=== PATIENT | female | born 1950 | race Caucasian/White ===

== ENCOUNTER → 2016-07-09 | Outpatient (CLI) | payer OTHER, MEDICARE | LOC: FIMAGING 16:00 | DX: Z12.31 Encounter for screening mammogram for malignant neoplasm of breast (principal) | CPT/HCPCS: G0202 ==

== ENCOUNTER → 2017-01-10 | Outpatient (CLI) | payer OTHER, MEDICARE | LOC: FIMAGING 09:04 | PROVIDERS: ATTEND Internal Medicine | DX: R90.82 White matter disease, unspecified (principal) ==

== ENCOUNTER → 2017-03-04 | Outpatient (CLI) | payer OTHER, MEDICARE | LOC: BHFA 08:30 | PROVIDERS: ATTEND Internal Medicine Cardiovascular Disease | DX: R94.31 Abnormal electrocardiogram [ECG] [EKG] (principal); R06.09 Other forms of dyspnea | CPT/HCPCS: 78452; 93017; A9500 ==

== ENCOUNTER 2017-06-10 03:15 | Emergency (ER) | payer OTHER, MEDICARE ==
[2017-06-10] MEDS ORDERED: NS 1,000 ML IV ONE ×3 (03:25→05:57)
--- NOTE | 2017-06-10 03:33 | CPEKG ---
Heart Rate: 45 RR Interval: 1333 P-R Interval: 216 QRSD Interval: 90 QT Interval: 512 QTC Interval: 443 P [place]: 44 QRS [place]on: -43 T Wave [place]on: -13 EKG Severity - BORDERLINE ECG - EKG Impression: SINUS BRADYCARDIA EKG Impression: LEFT AXIS DEVIATION EKG Impression: BORDERLINE T ABNORMALITIES, INFERIOR LEADS Electronically Signed By: Lynnette Rizzo 10-Jun-2017 07:37:50
[2017-06-10 03:37] LABS: PLATELET COUNT 306 10^3/uL (150-400)
[2017-06-10] MEDS ORDERED: KETOROLAC 15 MG/1 ML SDV IVP ONE (04:01)
[2017-06-10] MEDS ORDERED: fentaNYL 100 MCG/2 ML INJ IVP ONE (04:01)
--- NOTE | 2017-06-10 04:06 | EDPHY ---
H & P Stated Complaint: CP Time Seen by Provider: 06/10/17 03:48 HPI/ROS: HPI The patient presents brought in by ambulance for chest pain which began at approximately 2:15 a.m. This morning and awoke her from sleep. She describes the pain as a pressure like sensation which feels like a fist in her mid sternum. It causes numbness to her jaw and left shoulder. It has been constant since it started and is moderate in severity. She feels short of breath with this. It is associated with dizziness. She denies any diaphoresis , nausea, vomiting. She denies any coughing, rhinorrhea, sore throat, fever. She was feeling well when she went to bed last night. She has no prior history of similar pain. She had a negative stress test performed in February of 2017. She does not have any leg swelling. She says her blood pressure is usually 118 over 60s. REVIEW OF SYSTEMS Constitutional: No fever, no chills. Eyes: No discharge. ENT: No sore throat. Cardiovascular: No chest pain, no palpitations. Respiratory: No cough, no shortness of breath. Gastrointestinal: No abdominal pain, no vomiting. Genitourinary: No hematuria. Musculoskeletal: No back pain. Skin: No rashes. Neurological: No headache. PMHx: Pre diabetes, hypercholesterolemia Soc Hx: Lives at home with her PHYSICAL General Appearance: Alert, no distress Eyes: Pupils equal and round no pallor or injection ENT, Mouth: Mucous membranes moist Respiratory: There are no retractions, lungs are clear to auscultation Cardiovascular: Regular rate and rhythm Gastrointestinal: Abdomen is soft and non-tender, no masses, bowel sounds normal Neurological: A&O, moves all extremities Skin: Warm and dry, no rashes Musculoskeletal: Neck is supple non tender Extremities: symmetrical, full range of motion Psychiatric: Patient is oriented X 3, there is no agitation Source: Patient, EMS Exam Limitations: No limitations - Personal History Current Tetanus/Diphtheria Vaccine: Yes - Medical/Surgical History Hx Asthma: No Hx Chronic Respiratory Disease: No Hx Diabetes: Yes Hx Cardiac Disease: No Hx Renal Disease: No Hx Cirrhosis: No Hx Alcoholism: No Hx HIV/AIDS: No Hx Splenectomy or Spleen Trauma: No Other PMH: hypothyroid, high cholesterol, pre diabetic, Constitutional: Initial Vital Signs Heart Rate 46 L 06/10/17 03:25 Respiratory Rate 18 06/10/17 03:25 Blood Pressure 88/60 L 06/10/17 03:25 O2 Sat (%) 99 06/10/17 03:25 O2 Delivery Mode Nasal Cannula O2 (L/minute) 2 Allergies/Adverse Reactions: doxycycline Allergy (Verified 06/10/17 03:28) formaldehyde Allergy (Mild, Uncoded 05/12/12 09:09) Rash quaternium-15 Allergy (Mild, Uncoded 05/12/12 09:09) Rash Home Medications: Medication Instructions Recorded Aspirin 06/10/17 Atorvastatin Calcium 06/10/17 LEVOTHYROXINE SODIUM 06/10/17 Metformin HCl 06/10/17 Medical Decision Making - Diagnostics EKG Interpretation: EKG: Complete interpretation has been separately recorded in the [facility] archive. Summary impression: Sinus bradycardia, T-wave inversion in V1 through V4, unchanged from prior EKG. Imaging Results: Chest x-ray two view shows no cardiomegaly, no infiltrate, interpreted by me, radiology interpretation is pending. Imaging: I viewed and interpreted images myself Differential Diagnosis: This is a 66-year-old female with history of hypercholesterolemia and pre diabetes who presents from home with chest pain which awoke her from sleep. On exam, she is quite bradycardic in the 40s and also hypotensive. She has ongoing pain here. Differential diagnosis is broad and includes ACS, pulmonary embolism, pneumonia , sepsis, pericarditis. In the emergency department, patient was given IV fluids and medication for pain. She received an aspirin by EMS. Her chest pain improved, though did not completely subside. EKG, chest x-ray, basic labs including troponin were all normal. She continued to be quite hypotensive with systolics in the 80s. She said that she did not drink as much water as she usually does yesterday. Given her ongoing chest pain though mild as well as hypotension, I feel she should be admitted for observation. I have discussed the case with the hospitalist Dr. Centeno and we will admit her. The patient is in agreement with this plan. - Data Points Laboratory Results: Laboratory Results 06/10/17 03:15 06/10/17 03:15 06/10/17 06/10/17 06/10/17 04:16 04:16 04:16 WBC RBC Hgb Hct MCV MCH MCHC RDW Plt Count MPV Neut % (Auto) Lymph % (Auto) [place] % (Auto) Eos % (Auto) Baso % (Auto) Nucleat RBC Rel Count Absolute Neuts (auto) Absolute Lymphs (auto) Absolute Monos (auto) Absolute Eos (auto) Absolute Basos (auto) Absolute Nucleated RBC Immature Gran % Immature Gran # D-Dimer 0.28 ug/mLFEU ug/mLFEU (0.00-0.50) VBG Lactic Acid 2.0 mmol/L mmol/L (0.7-2.1) Sodium Potassium Chloride Carbon Dioxide Anion Gap BUN Creatinine Estimated GFR Glucose Calcium Troponin I NT-Pro-B Natriuret Pep TSH Nasal Influenza A PCR NEGATIVE FOR FLU A (NEGATIVE) Nasal Influenza B PCR NEGATIVE FOR FLU B (NEGATIVE) RSV (PCR) NEGATIVE FOR RSV (NEGATIVE) 06/10/17 06/10/17 03:15 03:15 WBC 9.91 10^3/uL H 10^3/uL (3.80-9.50) RBC 4.68 10^6/uL 10^6/uL (4.18-5.33) Hgb 14.3 g/dL g/dL (12.6-16.3) Hct 43.2 % % (38.0-47.0) MCV 92.3 fL fL (81.5-99.8) MCH 30.6 pg pg (27.9-34.1) MCHC 33.1 g/dL g/dL (32.4-36.7) RDW 13.0 % % (11.5-15.2) Plt Count 306 10^3/uL 10^3/uL (150-400) MPV 9.8 fL fL (8.7-11.7) Neut % (Auto) 41.3 % % (39.3-74.2) Lymph % (Auto) 49.5 % H % (15.0-45.0) [place] % (Auto) 6.4 % % (4.5-13.0) Eos % (Auto) 2.2 % % (0.6-7.6) Baso % (Auto) 0.4 % % (0.3-1.7) Nucleat RBC Rel Count 0.0 % % (0.0-0.2) Absolute Neuts (auto) 4.09 10^3/uL 10^3/uL (1.70-6.50) Absolute Lymphs (auto) 4.91 10^3/uL H 10^3/uL (1.00-3.00) Absolute Monos (auto) 0.63 10^3/uL 10^3/uL (0.30-0.80) Absolute Eos (auto) 0.22 10^3/uL 10^3/uL (0.03-0.40) Absolute Basos (auto) 0.04 10^3/uL 10^3/uL (0.02-0.10) Absolute Nucleated RBC 0.00 10^3/uL 10^3/uL (0-0.01) Immature Gran % 0.2 % % (0.0-1.1) Immature Gran # 0.02 10^3/uL 10^3/uL (0.00-0.10) D-Dimer VBG Lactic Acid Sodium 141 mEq/L mEq/L (135-145) Potassium 4.1 mEq/L mEq/L (3.5-5.2) Chloride 107 mEq/L mEq/L (97-110) Carbon Dioxide 21 mEq/l L mEq/l (22-31) Anion Gap 13 mEq/L mEq/L (8-16) BUN 20 mg/dL mg/dL (7-23) Creatinine 1.0 mg/dL mg/dL (0.6-1.0) Estimated GFR 55 Glucose 124 mg/dL H mg/dL (70-100) Calcium 9.8 mg/dL mg/dL (8.5-10.4) Troponin I < 0.012 ng/mL ng/mL (0.000-0.034) NT-Pro-B Natriuret Pep 31 pg/mL pg/mL (0-125) TSH 3.800 uIU/mL uIU/mL (0.465-4.680) Nasal Influenza A PCR Nasal Influenza B PCR RSV (PCR) Medications Given: Al Hydroxide/Mg Hydroxide (Maalox Susp) 30 ml PO ONCE ONE Stop: 06/10/17 06:27 Last Admin: 06/10/17 06:41 Dose: 30 ml Hyoscyamine Sulfate (Levsin, Hyomax-Sl) 0.25 mg PO ONCE ONE Stop: 06/10/17 06:27 Last Admin: 06/10/17 06:40 Dose: 0.25 mg Lidocaine (Lidocaine 2% Viscous) 15 ml PO ONCE ONE Stop: 06/10/17 06:27 Last Admin: 06/10/17 06:41 Dose: 15 ml Discontinued Medications Fentanyl (Sublimaze) 25 mcg IVP EDNOW ONE Stop: 06/10/17 04:02 Last Admin: 06/10/17 04:06 Dose: 25 mcg Sodium Chloride (Ns) 1,000 mls @ 0 mls/hr IV EDNOW ONE; Wide Open PRN Reason: Protocol Stop: 06/10/17 03:26 Last Admin: 06/10/17 03:29 Dose: 1,000 mls Sodium Chloride (Ns) 1,000 mls @ 0 mls/hr IV EDNOW ONE; Wide Open PRN Reason: Protocol Stop: 06/10/17 04:07 Last Admin: 06/10/17 04:15 Dose: 1,000 mls Sodium Chloride (Ns) 1,000 mls @ 0 mls/hr IV EDNOW ONE; Wide Open PRN Reason: Protocol Stop: 06/10/17 05:58 Last Admin: 06/10/17 05:58 Dose: 1,000 mls Ketorolac Tromethamine (Toradol) 15 mg IVP EDNOW ONE Stop: 06/10/17 04:02 Last Admin: 06/10/17 04:06 Dose: 15 mg Departure - Departure Disposition: [facility] Acute Clinical Impression: Bradycardia Chest pain Qualifiers: Chest pain type: unspecified Qualified Code(s): R07.9 - Chest pain, unspecified Hypotension Qualifiers: Hypotension type: unspecified hypotension type Qualified Code(s): I95.9 - Hypotension, unspecified Condition: Fair
[2017-06-10] MEDS ORDERED: ACETAMINOPHEN 325 MG TAB PO PRN (06:03)
[2017-06-10] MEDS ORDERED: ONDANSETRON 4 MG/2 ML VIAL IVP PRN (06:03)
[2017-06-10] MEDS ORDERED: ONDANSETRON DISINTEGRATING 4 MG TAB PO PRN (06:03)
[2017-06-10] MEDS ORDERED: LIDOCAINE 2% VISCOUS 15 ML UDCUP PO ONE (06:26)
[2017-06-10] MEDS ORDERED: MAG HYDROX/AL HYDROX/SIMETH 30 ML UDCUP PO ONE (06:26)
[2017-06-10] MEDS ORDERED: HYOSCYAMINE SULFATE 0.125 MG TAB PO ONE (06:26)
[2017-06-10] MEDS ORDERED: HYOSCYAMINE SULFATE 0.125 MG TAB ONE (06:39)
[2017-06-10] MEDS ORDERED: MAG HYDROX/AL HYDROX/SIMETH 30 ML UDCUP ONE (06:39)
[2017-06-10] MEDS ORDERED: LIDOCAINE 2% VISCOUS 15 ML UDCUP ONE (06:39)
--- NOTE | 2017-06-10 07:27 | GHP ---
[f rep st] HISTORY AND PHYSICAL DATE OF ADMISSION: 06/10/2017 CHIEF COMPLAINT: Chest pain. HISTORY: A pleasant 66-year-old female with history of hyperlipidemia, hypothyroidism, prediabetes, presenting with chest pain that awoke her from sleep. She describes it as a lump in her upper chest, feels like a fist. It did radiate up to her jaw and shoulder. Did not have associated diaphoresis, shortness of breath, or numbness in the arm or hands. She denies dizziness or lightheadedness. No upper respiratory symptoms. She had a cold in April on and off, but these symptoms have resolved. She had a cardiac cath in 2012 with mild CAD and an aneurysm LAD. She is followed by Cardiology in [facility] and had complained of dyspnea last year and thus underwent a nuclear treadmill test in February 2017 that was negative. She exercises most days including a 3 hikes a week, a couple Pilates classes and then walking 40-50 m inutes other days. With this exercise, she does not experience chest pain, shortness of breath, dizz iness, or lightheadedness. On cath, it was noted she had elevated LVEDP and was recommended to start hydrochlorothiazide, but she has declined. She also reports drinking less water than normal yesterd ay. She wonders if she is having reflux, as she did have fried onions for dinner last night. In the ED, she was noted to be bradycardic to the 40s to 50s, and hypotensive to a systolic of 88. Did travel to travel to [place] in most of March. Denies any lower extremity edema, pillow orthopne a, or PND. REVIEW OF SYSTEMS: I completed a 10-point review of systems, negative except as noted in HPI. PAST MEDICAL HISTORY: Hyperlipidemia, hypothyroidism, prediabetes, aneurysm LAD, mild coronary arter y disease by cath 2012. Negative nuclear treadmill test 02/2017. MRI in 02/2017 with microvascular ischemic gliosis, stable from prior imaging. PAST SURGICAL HISTORY: Right ankle. . Donated right kidney to her . Tonsillectomy . SOCIAL HISTORY: Lives in [place] with her . No tobacco. Drinks at least 7 drinks a week of wine or liquor. Also drinks caffeine. MEDICATIONS: Metformin, levothyroxine, atorvastatin, aspirin. ALLERGIES: Doxycycline, formaldehyde, quaternium-15. PHYSICAL EXAMINATION: VITAL SIGNS: Temperature 36.3. Blood pressure initially was 88/60, now 93/59 . Heart rate initially 46, now 79. Respiration 18, 94% on room air. GENERAL: Lying in bed, no acu te distress. HEENT: PERRLA. EOMI. Oropharynx clear. Mildly dry mucous membranes. CV: Regular ra te and rhythm. No murmurs, gallops, or rubs. No lower extremity edema. Mildly reproducible midster nal chest pain. LUNGS: Clear. No crackles or wheezing. ABDOMEN: Soft, nontender. GI: Positive epigastric pain. No rebound or guarding. Positive bowel sounds. : No Mcmanus. MUSCULOSKELETAL: 5/5 upper and lower extremity strength. NEURO: 2 through 12 intact. PSYCH: Alert and oriented x3. LABORATORY DATA: WBC 9, hemoglobin 14, hematocrit 43, platelets 306. D-dimer is 0.28. Lactate is 2 . Sodium 141, potassium 4.1, chloride 107, carbon dioxide 21. creatinine is 1, baseline 0.8. Glucos e is 124. Calcium is 9.8. Troponin is less than 0.012. BNP is 31. TSH is 3.8. RSV/influenza nega tive. Chest x-ray is personally reviewed by me, good inspiration, no opacity. EKG, personally revie wed by me, ST flattening II, III, AVF; T-wave inversions V1 through V5; [address]-depression V5. This is similar to prior EKG. ASSESSMENT/PLAN: 1. Acute chest pressure. Differential was broad including ACS, pulmonary embolism, musculoskeletal, or gastroesophageal reflux disease. EKG and troponin are negative for ischemia. Will monitor on te lemetry and repeat. D-dimer was negative, thus low likelihood of pulmonary embolism. She does have a reproducible component on exam. Will trial GI cocktail. She also had a normal nuclear study in No vember, which is reassuring. 2. Bradycardia. This was noted in the ER. This is improved in the 70s. She is not on any AV block ing agents. She has normal TSH. 3. Hypotension, unclear etiology. Normal blood pressures, systolics one-teens. She does endorse de creased p.o. intake and creatinine is mildly elevated to 1, with baseline of 0.8. She is being hydra jamal in the ED and blood pressure is improving. No infectious symptoms, and she is afebrile. She has had negative infectious evaluation including influenza, RSV, chest x-ray. Will check a urine. 4. Hypothyroidism, Synthroid. 5. Hyperlipidemia, statin. 6. DVT prophylaxis Lovenox. DISPOSITION: Patient warrants observation admission given acute chest pressure, requiring serial tro ponin, telemetry. /[id number]/MODL
[2017-06-10] MEDS ORDERED: ENOXAPARIN 40 MG/0.4 ML SYR SC SCH (09:00)
[2017-06-10 09:27] VITALS: BP 98/65; PULSE 80; RESP 16; TEMP 97.9; O2SAT 94
[2017-06-10] MEDS ORDERED: metFORMIN HCL 500 MG TAB PO SCH (21:00)
[2017-06-10] MEDS ORDERED: HYDROCHLOROTHIAZIDE 12.5 MG CAP PO SCH (21:00)
[2017-06-10] MEDS ORDERED: ASPIRIN EC 81 MG TAB PO SCH (21:00)
[2017-06-10] MEDS ORDERED: ATORVASTATIN CALCIUM 10 MG TAB PO SCH (21:00)
[2017-06-11] MEDS ORDERED: LEVOTHYROXINE 50 MCG TAB PO SCH (06:00)
[2017-06-11] MEDS ORDERED: OMEGA-3 FATTY ACIDS 1,000 MG CAP PO SCH (09:00)
[2017-06-11] MEDS ORDERED: CHOLECALCIFEROL VIT D3 1,000 UNITS TAB PO SCH (09:00)
== END 2017-06-10 09:30 | disposition home or self-care (01) ==
LOC: EDUNIT# → INTOOBSV 05:57 → UNDOADMOB 05:57
DX: R07.9 Chest pain, unspecified (principal); I95.9 Hypotension, unspecified; R73.03 Prediabetes; E86.9 Volume depletion, unspecified
CPT/HCPCS: 71046; 93005; 96361; 96374; 96375; 99285; J1885; J3010

== ENCOUNTER → 2017-08-05 | Outpatient (CLI) | payer OTHER, MEDICARE | LOC: FIMAGING 16:03 | PROVIDERS: ATTEND Internal Medicine | DX: Z12.31 Encounter for screening mammogram for malignant neoplasm of breast (principal) ==

== ENCOUNTER → 2017-09-08 | Outpatient (CLI) | payer OTHER, MEDICARE | LOC: FIMAGING 06:41 | PROVIDERS: ATTEND Internal Medicine Gastroenterology | DX: R07.89 Other chest pain (principal); K76.0 Fatty (change of) liver, not elsewhere classified; Z90.5 Acquired absence of kidney ==

== ENCOUNTER → 2018-09-29 | Outpatient (CLI) | payer OTHER, MEDICARE | LOC: FIMAGING 08:36 ==